=== PATIENT | male | born 1985 | race American Indian/Alaskan Native ===

== ENCOUNTER 2016-12-21 13:59 | Emergency (ER) | payer OTHER ==
--- NOTE | 2016-12-21 15:17 | Emergency Department Report ---
Chief Complaint: Fall Stated Complaint: TAILBONE PAIN Time Seen by Provider: 12/21/16 15:15 - HPI History of Present Illness: fell off truck - ROS Review of Systems: - back pain + tail bone pain - Exam Vital Signs: Vital Signs 12/21/16 15:10 Temperature 98.3 F Pulse Rate 65 Respiratory 18 Rate Blood Pressure 110/80 O2 Sat by Pulse 99 Oximetry Physical Exam: - l spine tenderness MSE screening note: Focused history and physical exam performed. Due to findings the following was ordered: xr ED Disposition for MSE Condition: Stable
--- NOTE | 2016-12-21 22:10 | Emergency Department Report ---
HPI - General Chief Complaint: Fall Time Seen by Provider: 12/21/16 15:15 - HPI HPI: Pt is a 31 yr old male with no PMH presents cc of butt pain x 1 day. pt states he was at work when he lost his step and fell on his tail bone hard. Pt states pain has gotten worse since then and he is unable to sit without experiencing some pain. he rates the pain a 7/10 and states it is localized to the tail bone . He dies any other problems ED Past Medical Hx - Past Medical History Previous Medical History?: Yes Additional medical history: stomach pains - Surgical History Past Surgical History?: No - Social History Smoking Status: Never Smoker Substance Use Type: Alcohol, Non Opiate Pain - Medications Home Medications: Home Medications Medication Instructions Recorded Confirmed Last Taken Type Amoxicillin [Amoxicillin TAB] 875 mg PO BID #14 tablet 05/19/14 Unknown Rx Ibuprofen [Motrin] 600 mg PO Q8H PRN #30 tablet 05/19/14 Unknown Rx Acetaminophen/Codeine [Tylenol 1 tab PO Q6H PRN #10 tab 12/21/16 Unknown Rx /Codeine # 3 tab] Cyclobenzaprine [Flexeril] 10 mg PO QHS PRN #20 tablet 12/21/16 Unknown Rx Ibuprofen [Motrin] 800 mg PO Q8HR PRN #30 tablet 12/21/16 Unknown Rx ED Review of Systems ROS: Stated complaint: TAILBONE PAIN Other details as noted in HPI Constitutional: denies: chills, fever Eyes: denies: eye pain, eye discharge, vision change ENT: denies: ear pain, throat pain Respiratory: denies: cough, shortness of breath, wheezing Cardiovascular: denies: chest pain, palpitations Endocrine: no symptoms reported Gastrointestinal: denies: abdominal pain, nausea, diarrhea Genitourinary: denies: urgency, dysuria Musculoskeletal: denies: back pain, joint swelling, arthralgia Skin: denies: rash, lesions Neurological: denies: headache, weakness, numbness, paresthesias, confusion Psychiatric: denies: anxiety, depression Hematological/Lymphatic: denies: easy bleeding, easy bruising Physical Exam - Physical Exam Vital Signs: Vital Signs 12/21/16 15:10 Temperature 98.3 F Pulse Rate 65 Respiratory 18 Rate Blood Pressure 110/80 O2 Sat by Pulse 99 Oximetry Physical Exam: GENERAL: Alert and oriented x3, no apparent distress, Normal Gait, atraumatic. HEAD: Head is normocephalic and a-traumatic. NECK: Supple. Non edematous, No lymphadenopathy or thyromegaly. No C-spine tenderness LUNGS: Symetrical with respiration, No wheezing, no rales or crackles, CTAB. HEART: S1, S2 present, regular rate and rhythm without murmur, no rubs, no gallops. Non tender to palpation EXTREMITIES/MUSCULOSKELETAL: No cyanosis, clubbing, rash, lesions or edema. Full ROM bilaterally. UE/LE Pulses 2+ bilaterally. , straight leg raise negative bilaterally. Tenderness to palpation at the tailbone region, no swelling, no ecchymosis NEUROLOGIC: The patient is cooperative with no focal neurologic deficits. Cranial nerves II through XII are grossly intact. Normal speech. PSYCHIATRIC: Mood is congruent with affect, denies suicidal or homicidal ideations. SKIN: Warm and dry, No lesions, No ulceration or induration present. ED Course Vital Signs 12/21/16 15:10 Temperature 98.3 F Pulse Rate 65 Respiratory 18 Rate Blood Pressure 110/80 O2 Sat by Pulse 99 Oximetry ED Medical Decision Making - Radiology Data Radiology results: report reviewed, image reviewed FINAL REPORT PROCEDURE: XR SPINE SACRUM/COCCYX 2+V TECHNIQUE: Sacrum and coccyx radiographs, AP and lateral views. HISTORY: pain sp fall COMPARISON: No prior studies are available for comparison. FINDINGS: Fracture(s): An acute transverse fracture is noted involving the coccyx with the distal fragment displaced posteriorly by above 5 millimeters Bone mineralization: Normal. IMPRESSION: Acute transverse fracture of the coccyx. Transcribed By: [facility] [place] Dictated By: HUONG CARVAJAL Electronically Authenticated By: HUONG CARVAJAL Signed Date/Time: 12/21/16 2462 - Medical Decision Making This is a 31-year-old male who presents to ED with tailbone fracture ED course: Patient received Toradol and Tylenol 3 in ED X-ray of the sacrum and coccyx is ordered. X-ray of the sacrum and coccyx shows - see results Discussed findings with the patient. Discussed with the patient to follow-up with orthopedics as soon as possible. Discussed with patient the medication as prescribed Is worsening symptoms to return to ED Vital signs are stable patient is in no acute distress. Patient is alert and oriented 3 understands instructions given Critical care attestation.: If time is entered above; I have spent that time in minutes in the direct care of this critically ill patient, excluding procedure time. ED Disposition Clinical Impression: Fracture of coccyx Qualifiers: Encounter type: initial encounter Fracture type: closed Qualified Code(s): S32.2XXA - Fracture of coccyx, initial encounter for closed fracture Disposition: - TO HOME OR SELFCARE Is pt being admited?: No Does the pt Need Aspirin: No Condition: Stable Instructions: Pelvic Fracture (ED) Additional Instructions: Take your medication as described Follow-up with the orthopedic as referred Prescriptions: Cyclobenzaprine [Flexeril] 10 mg PO QHS PRN #20 tablet PRN Reason: Muscle Spasm Acetaminophen/Codeine [Tylenol /Codeine # 3 tab] 1 tab PO Q6H PRN #10 tab PRN Reason: Pain Ibuprofen [Motrin] 800 mg PO Q8HR PRN #30 tablet PRN Reason: Pain Referrals: PRIMARY CARE, [Primary Care Provider] - 3-5 Days MEGHAN MOORE MD [Staff Physician] - 3-5 Days Forms: Work/School Release Form(ED), Accompanied Note Time of Disposition: 22:47
[2016-12-21] MEDS ORDERED: TYLENOL #3 PO ONE (22:18)
[2016-12-21] MEDS ORDERED: TORADOL IM ONE (22:18)
--- NOTE | 2016-12-21 22:19 | XRay Report ---
FINAL REPORT PROCEDURE: XR SPINE SACRUM/COCCYX 2+V TECHNIQUE: Sacrum and coccyx radiographs, AP and lateral views. HISTORY: pain sp fall COMPARISON: No prior studies are available for comparison. FINDINGS: Fracture(s): An acute transverse fracture is noted involving the coccyx with the distal fragment displaced posteriorly by above 5 millimeters Bone mineralization: Normal. IMPRESSION: Acute transverse fracture of the coccyx.
[2016-12-21 23:02] VITALS: BP 105/67
== END 2016-12-21 23:00 | disposition home or self-care (01) ==
LOC: ED 13:59
DX: S32.2XXA Fracture of coccyx, initial encounter for closed fracture (principal); W10.8XXA Fall (on) (from) other stairs and steps, initial encounter; Y93.89 Activity, other specified; Y99.8 Other external cause status; Y92.89 Other specified places as the place of occurrence of the external cause
CPT/HCPCS: 72220; 96372; 99283; J1885